=== PATIENT | female | born 1955 | race Caucasian/White ===

== ENCOUNTER 2016-11-26 12:37 | Emergency (ER) | payer BC ==
--- NOTE | 2016-11-26 14:31 | US ---
Name: STEFANO MEIER Exam: Venous ultrasound left leg Comparison: 08/20/2015 Clinical history: Left knee pain. Painful with walking. Findings:Deep veins of the left leg were evaluated with ultrasound using real-time, color flow doppler and doppler analysis. Deep veins are compressible. There is no echogenic intraluminal filling defect. Blood flow responds appropriately to respiratory variation and augmentation on color doppler and spectral analysis. There is no suspicious fluid collection or mass. Impression: No ultrasound evidence for DVT left leg Note: The above report was uploaded to [facility]'s electronic medical records system at 1427 hours.
== END 2016-11-26 14:49 | disposition home or self-care (01) ==
LOC: ED 12:37
DX: M25.562 Pain in left knee (principal)